=== PATIENT | female | born 1995 | race Caucasian/White ===

== ENCOUNTER → 2016-11-16 | Outpatient (CLI) | payer OTHER ==
--- NOTE | 2016-11-16 16:22 | RADIOLOGY REPORT (SQ) ---
EXAM DESCRIPTION: CHEST PA/LATERAL COMPLETED DATE/TIME: 11/16/2016 4:13 pm REASON FOR STUDY: PLEURODYNIA COMPARISON: None. EXAM PARAMETERS: NUMBER OF VIEWS: two views TECHNIQUE: Digital Frontal and Lateral radiographic views of the chest acquired. RADIATION DOSE: NA LIMITATIONS: none FINDINGS: LUNGS AND PLEURA: No opacities, masses or pneumothorax. No pleural effusion. MEDIASTINUM AND HILAR STRUCTURES: No masses or contour abnormalities. HEART AND VASCULAR STRUCTURES: Heart normal size. No evidence for failure. BONES: No acute findings. HARDWARE: None in the chest. OTHER: No other significant finding. IMPRESSION: NO SIGNIFICANT RADIOGRAPHIC FINDING IN THE CHEST. TECHNICAL DOCUMENTATION: JOB ID: [id number] [employer]- All Rights Reserved
== END ==
LOC: OD 15:49
PROVIDERS: ATTEND Internal Medicine Medical Oncology
DX: R07.81 Pleurodynia (principal); R10.9 Unspecified abdominal pain
CPT/HCPCS: 71020

== ENCOUNTER 2017-01-11 07:47 | Emergency (ER) | payer OTHER ==
[2017-01-11 07:52] VITALS: BP 148/84
[2017-01-11] MEDS ORDERED: IPRATROPIUM/ALBUTEROL 0.5-2.5 MG/3 ML AMPUL NEB ONE ×2 (08:16→11:24)
[2017-01-11] MEDS ORDERED: PREDNISONE 20 MG TABLET PO ONE ×2 (08:16→11:23)
[2017-01-11] MEDS ORDERED: RACEPINEPHRINE HCL 2.25% NEB 0.5 ML AMPUL NEB ONE (08:16)
--- NOTE | 2017-01-11 08:25 | ER Document Report ---
ED General - General Mode of Arrival: Ambulatory Information source: Patient TRAVEL OUTSIDE OF THE [place] IN LAST 30 DAYS: No <ARTHUR SON - Last Filed: 01/11/17 09:40> <HI FERNANDEZ - Last Filed: 01/11/17 13:57> - General Chief Complaint: Asthma Exacerbation Stated Complaint: DIFFICULTY BREATHING Time Seen by Provider: 01/11/17 08:09 Notes: Patient is a 21 year old female with a history of asthma presents to the emergency department complaining of asthma exacerbation onset a week ago. Patient states the symptoms are worsening and she has had to call out of work. Patient states she has been using her inhaler every 30 minutes and nebulizer treatments 2x daily. Patient states her nebulizer treatments do not work. Patient also complains of non productive cough. Patient denies any fevers. Patient currently takes Albuterol, Advair and Montelukast. (ARTHUR SON) - Related Data Allergies/Adverse Reactions: duloxetine [From Cymbalta] Allergy (Intermediate, Verified 01/11/17 08:02) fluoxetine [From Prozac] Allergy (Verified 01/11/17 08:04) peanut Allergy (Verified 01/11/17 08:05) sertraline [From Zoloft] Allergy (Verified 01/11/17 08:04) walnut Allergy (Verified 01/11/17 08:05) antidepressants Allergy (Uncoded 01/11/17 07:48) Past Medical History - Social History Smoking Status: Never Smoker Chew tobacco use (# tins/day): No Frequency of alcohol use: None Drug Abuse: None Family History: Reviewed & Not Pertinent Patient has suicidal ideation: No Patient has homicidal ideation: No Pulmonary Medical History: Reports: Hx Asthma Renal/ Medical History: Denies: Hx Peritoneal Dialysis Past Surgical History: Reports: Hx Section <ARTHUR SON - Last Filed: 01/11/17 09:40> Physical Exam - General General appearance: Appears well, Alert In distress: None - HEENT Head: Normocephalic, Atraumatic Eyes: Normal Conjunctiva: Normal Pupils: PERRL Mucous membranes: Moist - Respiratory Respiratory status: No respiratory distress Breath sounds: Nonproductive cough, Wheezing - tight, inspiratory and expiratory - Cardiovascular Rhythm: Regular Heart sounds: Normal auscultation Murmur: No Friction rub: No Gallop: None auscultated - Abdominal Inspection: Normal - Back Back: Normal - Extremities General upper extremity: Normal inspection, Normal ROM General lower extremity: Normal inspection, Normal ROM - Neurological Neuro grossly intact: Yes Cognition: Normal Orientation: AAOx4 [place] Coma Scale Eye Opening: Spontaneous [place] Coma Scale Verbal: Oriented [place] Coma Scale Motor: Obeys Commands [place] Coma Scale Total: 15 Speech: Normal - Psychological Associated symptoms: Normal affect, Normal mood - Skin Skin Temperature: Warm Skin Moisture: Dry Skin Color: Normal <ARTHUR SON - Last Filed: 01/11/17 09:40> - Vital signs Vitals: Temp Pulse Resp BP Pulse Ox 98.6 F 86 17 148/84 H 98 01/11/17 07:51 01/11/17 07:51 01/11/17 07:51 01/11/17 07:51 01/11/17 07:51 Course - Laboratory Result Diagrams: 01/11/17 09:09 01/11/17 09:09 <ARTHUR SON - Last Filed: 01/11/17 09:40> - Laboratory Result Diagrams: 01/11/17 09:09 01/11/17 09:09 <HI FERNANDEZ - Last Filed: 01/11/17 13:57> - Re-evaluation Re-evalutation: 01/11/17 09:38 The nurse tells me the patient declined the oral prednisone because she thinks she might be . She was asking about getting a steroid shot instead. 01/11/17 12:54 (HI FERNANDEZ) - Vital Signs Vital signs: Temp Pulse Resp BP Pulse Ox 98.6 F 86 17 148/84 H 98 01/11/17 07:51 01/11/17 07:51 01/11/17 07:51 01/11/17 07:51 01/11/17 07:51 - Laboratory Laboratory results interpreted by me: 01/11/17 01/11/17 09:09 09:09 Eosinophils % 15.8 H Absolute Eosinophils 1.3 H BUN 6 L Discharge <ARTHUR SON - Last Filed: 01/11/17 09:40> <HI FERNANDEZ - Last Filed: 01/11/17 13:57> - Discharge Clinical Impression: Asthmatic bronchitis with acute exacerbation Qualifiers: Asthma severity: moderate Asthma persistence: persistent Qualified Code(s): J45.41 - Moderate persistent asthma with (acute) exacerbation Condition: Stable Disposition: HOME, SELF-CARE Additional Instructions: Start the Zithromax today. Start the Prednisone tomorrow. Do albuterol breathing treatments every 2 hours as needed for wheezing. Otherwise do the albuterol treatments every 4 hours and add the ipratropium bromide to the albuterol so you get the ipratropium bromide every 4 hours. Drink plenty of fluids throughout the day and evening. Get plenty of rest. Follow-up with your medical doctor if not improving. RETURN TO THE EMERGENCY ROOM IF ANY NEW OR WORSENING SYMPTOMS. Prescriptions: Albuterol Sulfate [Proair HFA] 1 - 2 puff IH Q4 PRN #1 inhaler PRN Reason: Azithromycin [Zithromax 250 mg Tablet] 250 mg PO ASDIR PRN #6 tablet PRN Reason: Prednisone [Deltasone 10 mg Tablet] 10 mg PO ASDIR PRN #21 tablet PRN Reason: Forms: Parent Work Note, Return to Work Referrals: BARTOLO CRUZ MD [Primary Care Provider] - Follow up as needed Scribe Attestation: 01/11/17 09:19 I personally performed the services described in the documentation, reviewed and edited the documentation which was dictated to the scribe in my presence, and it accurately records my words and actions. (HI FERNANDEZ) Scribe Documentation - Scribe Written by Tony:: Tony Miller, 01/11/2017 08:25 acting as scribe for :: Karla <ARTHUR SON - Last Filed: 01/11/17 09:40>
[2017-01-11 09:27] LABS: ABSOLUTE BASOPHILS # (AUTO) 0.1 10^3/uL (0.0-0.2); ABSOLUTE EOSINOPHILS # (AUTO) 1.3 10^3/uL (0.0-0.6); ABSOLUTE LYMPHOCYTES (AUTO) 2.7 10^3/uL (0.5-4.7); ABSOLUTE MONOCYTES (AUTO) 0.4 10^3/uL (0.1-1.4); ABSOLUTE NEUT (AUTO) 3.9 10^3/uL (1.7-8.2); BASOPHILS % (AUTO) 0.6 % (0-2); EOSINOPHILS % (AUTO) 15.8 % (0-6); HEMATOCRIT 38.9 % (36.0-47.0); LYMPHOCYTES % (AUTO) 31.7 % (13-45); MEAN CORPUSCULAR HEMOGLOBIN 28.5 pg (27.0-33.4); MEAN CORPUSCULAR HGB CONC 33.5 g/dL (32.0-36.0); MEAN CORPUSCULAR VOLUME 85 fl (80-97); MONOCYTES % (AUTO) 4.7 % (3-13); PLATELET COUNT 233 10^3/uL (150-450); RED BLOOD COUNT 4.57 10^6/uL (3.72-5.28); RED CELL DISTRIBUTION WIDTH 13.4 % (11.5-14.0); SEGMENTED NEUTROPHILS % (AUTO) 47.2 % (42-78); TOTAL CELLS COUNTED % (AUTO) 100 %; WHITE BLOOD COUNT 8.4 10^3/uL (4.0-10.5)
[2017-01-11] MEDS ORDERED: ALBUTEROL SULFATE 0.083% NEB 2.5 MG/3 ML AMPUL NEB ONE (09:32)
[2017-01-11] MEDS ORDERED: NORMAL SALINE 1000 ML 1,000 ML IV ONE ×2 (09:37→11:23)
[2017-01-11] MEDS ORDERED: MAGNESIUM SULFATE/D5W 1 GM/100 ML RTUPB IV ONE ×2 (09:37→11:23)
[2017-01-11 09:56] LABS: ALANINE AMINOTRANSFERASE 34 U/L (9-52); ALBUMIN 4.6 g/dL (3.5-5.0); ALKALINE PHOSPHATASE 73 U/L (38-126); ANION GAP 15 (5-19); ASPARTATE AMINO TRANSFERASE 21 U/L (14-36); BILIRUBIN,DIRECT 0.3 mg/dL (0.0-0.4); BILIRUBIN,TOTAL 0.7 mg/dL (0.2-1.3); BLOOD UREA NITROGEN 6 mg/dL (7-20); CARBON DIOXIDE 24 mmol/L (22-30); CHLORIDE 105 mmol/L (98-107); GLUCOSE 97 mg/dL (75-110); POTASSIUM 4.1 mmol/L (3.6-5.0); TOTAL PROTEIN 7.1 g/dL (6.3-8.2)
[2017-01-11] MEDS ORDERED: METHYLPREDNISOLONE INJ 125 MG/2 ML SDV IV ONE (10:00)
== END 2017-01-11 14:58 | disposition home or self-care (01) ==
LOC: ER 07:47
DX: J45.21 Mild intermittent asthma with (acute) exacerbation (principal); R05 Cough; Z79.899 Other long term (current) drug therapy; Z79.51 Long term (current) use of inhaled steroids; Z88.8 Allergy status to other drugs, medicaments and biological substances; Z91.010 Allergy to peanuts; Z91.018 Allergy to other foods; Z91.040 Latex allergy status
CPT/HCPCS: 94640 ×2; 99285; 96375; 96365; 96366; 36415; 84703; 85025; 80053; J2930; J3475; J7512; J7030; J3490; J7620